=== PATIENT | female | born 1945 | race Caucasian/White ===

== ENCOUNTER → 2023-09-14 13:08 | Outpatient (REF) | payer MEDICARE, SELFPAY | LOC: RCS 13:08 | PROVIDERS: ATTENDING PHYSICIAN Internal Medicine Cardiovascular Disease; FAMILY PHYSICIAN Family Medicine | DX: R06.09 Other forms of dyspnea (principal) | CPT/HCPCS: 93017; 93350 ==

== ENCOUNTER → 2023-09-16 14:36 | Outpatient (REF) | payer MEDICARE, SELFPAY | LOC: DHCBC MAIN 14:36 | PROVIDERS: ATTENDING PHYSICIAN Internal Medicine Cardiovascular Disease; FAMILY PHYSICIAN Family Medicine | DX: R06.09 Other forms of dyspnea (principal); I10 Essential (primary) hypertension | CPT/HCPCS: 93306 ==

== ENCOUNTER → 2024-08-28 14:12 | Outpatient (REF) | payer MEDICARE, SELFPAY | LOC: WDC 14:12 | PROVIDERS: ATTENDING PHYSICIAN Family Medicine | DX: Z12.31 Encounter for screening mammogram for malignant neoplasm of breast (principal) | CPT/HCPCS: 77063; 77067 ==

== ENCOUNTER → 2024-12-27 09:45 | Outpatient (REF) | payer MEDICARE, SELFPAY | LOC: RAD 09:45 | PROVIDERS: ATTENDING PHYSICIAN Physician Assistant; FAMILY PHYSICIAN Family Medicine | DX: R60.0 Localized edema (principal); M79.669 Pain in unspecified lower leg | CPT/HCPCS: 93971 ==